=== PATIENT | female | born 1995 | race African-American/Black ===

== ENCOUNTER 2020-11-07 21:57 | Emergency (ER) | payer BC, OTHER ==
[~2020-11-07] VITALS: Ht 185.4 cm; Wt 127.0 kg
[2020-11-08 00:21] VITALS: BP 168/84
== END 2020-11-08 00:22 | disposition home or self-care (01) ==
LOC: ER 21:57
DX: J02.9 Acute pharyngitis, unspecified (principal); Z20.822 Contact with and (suspected) exposure to COVID-19

== ENCOUNTER 2020-12-10 10:41 | Emergency (ER) | payer BC, OTHER ==
[~2020-12-10] VITALS: Ht 180.3 cm; Wt 54.4 kg
[2020-12-10] MEDS ORDERED: PROAIR HFA8.5 GM INH (13:47)
[2020-12-10] MEDS ORDERED: MEDROLDOSEPACK PO (13:47)
[2020-12-10] MEDS ORDERED: ZPAK PO (13:47)
[2020-12-10 14:09] VITALS: BP 126/88
== END 2020-12-10 14:14 | disposition home or self-care (01) ==
LOC: ER 10:41
PROVIDERS: Emergency Medicine
DX: R06.00 Dyspnea, unspecified (principal); Z20.822 Contact with and (suspected) exposure to COVID-19